=== PATIENT | male | born 2000 | race Caucasian/White ===

== ENCOUNTER 2024-02-01 12:32 | Emergency (ER) | payer BC, MEDICAID, OTHER ==
[~2024-02-01] VITALS: Ht 182.9 cm; Wt 68.0 kg
[2024-02-01] MEDS ORDERED: CEFTRIAXONE 500 MG VIAL ONE (13:34)
[2024-02-01] MEDS ORDERED: DOXYCYCLINE HYCLATE 100 MG TABLET ONE (13:34)
[2024-02-01] MEDS ORDERED: LIDOCAINE HCL 1% 20 ML VIAL ONE (13:34)
[2024-02-01] MEDS: DOXYCYCLINE HYCLATE 100 MG TABLET PO ONE (13:40)
[2024-02-01] MEDS: CEFTRIAXONE 500 MG VIAL IM ONE (13:40)
[2024-02-01] MEDS ORDERED: CHLO473M3 PO (13:57)
[2024-02-01] MEDS ORDERED: DOXY100T2 PO (13:57)
[2024-02-01] MEDS ORDERED: VALA100026 PO (13:57)
[2024-02-01 14:04] VITALS: BP 119/65; O2SAT 100
== END 2024-02-01 14:04 | disposition home or self-care (01) ==
LOC: ER 12:32
DX: J02.9 Acute pharyngitis, unspecified (principal); Z79.899 Other long term (current) drug therapy; Z20.822 Contact with and (suspected) exposure to COVID-19
CPT/HCPCS: 99283; 87426; 87804 ×2; 96372; 87081; J0696; J3490; 87070; A4606; A4663